=== PATIENT | female | born 1950 | race Caucasian/White ===

== ENCOUNTER 2023-02-17 03:28 | Inpatient (IN) | payer BC, OTHER ==
[2023-02-17] VITALS (8 sets, daily range): BP systolic 145–191; BP diastolic 56–86
[~2023-02-17] VITALS: Ht 198.1 cm; Wt 76.1 kg
[2023-02-17] MEDS ORDERED: methylPREDNISolone SOD SUCC 125 MG/2 ML VL IV ONE (03:45)
[2023-02-17] MEDS ORDERED: IPRATROPIUM BROM 0.5 MG/2.5ML INH SOL NEB ONE (03:45)
[2023-02-17] MEDS ORDERED: ALBUTEROL SULF 2.5 MG/0.5ML(0.5%) NEB SOLN NEB ONE (03:45)
[2023-02-17 03:55] LABS: Basophils # (auto) 0.1 10 ^3/uL (0-0.2); Eosinophils # (auto) 0.2 10 ^3/uL (0-0.8); Eosinophils % (auto) 2.8 % (0.0-7.0); Hematocrit 25.7 % (36.0-46.0); Hemoglobin 8.8 g/dL (12.2-16.2); Lymphocytes # (auto) 1.5 10 ^3/uL (0.4-5.4); Lymphocytes % (auto) 23.7 % (10.0-50.0); Mean Corpuscular Hgb Conc. 34.3 g/dL (32.0-36.0); Mean Corpuscular Volume 87.4 fL (80.0-100.0); Monocytes # (auto) 0.3 10 ^3/uL (0-1.3); Monocytes % (auto) 5.3 % (0.0-12.0); Neutrophils # (auto) 4.3 10 ^3/uL (1.6-8.6); Neutrophils % (auto) 67.2 % (37.0-80.0); Nucleated Red Blood Cells % 0.1 %; Red Blood Cells 2.94 10^6/uL (4.0-5.20); Red Cell Distribution Width 16.2 % (11.8-14.3); White Blood Cell 6.4 10^3/uL (4.4-10.8)
[2023-02-17 04:06] LABS: Albumin 3.5 g/dL (3.4-5.0); BUN/Creatinine Ratio 10.4 (10.0-20.0); Calcium 8.5 mg/dL (8.5-10.1); Potassium 4.3 mmol/L (3.5-5.1)
[2023-02-17 04:09] LABS: Bilirubin, Total 0.8 mg/dL (0.2-1.0); Phosphorus 5.7 mg/dL (2.5-4.90); Total Protein 6.6 g/dL (6.4-8.2)
[2023-02-17] MEDS: MAGNESIUM SULFATE 1GM/100ML 100 ML IV SCH ×2 (04:40→05:37)
[2023-02-17] MEDS ORDERED: ASPirin 325 MG TAB PO ONE (04:45)
[2023-02-17] MEDS ORDERED: MORPHINE SULFATE INJ 2 MG/ml SYRG IV PRN ×2 (06:45)
[2023-02-17] MEDS ORDERED: NITROGLYCERIN 0.4 MG SL TAB SL PRN (06:45)
[2023-02-17] MEDS ORDERED: ONDANSETRON HCL 4 MG/2 ML VIAL IV PRN (06:45)
[2023-02-17] MEDS ORDERED: InsuLIN REG 1unit/0.01ml Soln (100units/ml) SC ONE (07:00)
[2023-02-17] MEDS ORDERED: ACCU-CHEK COMFORT CURVE STRIP VI ONE (07:00)
[2023-02-17] MEDS ORDERED: DEXTROSE (50%) 50ML SYRG IV ONE (07:00)
[2023-02-17] MEDS ORDERED: LEVO25TA49 PO (09:23)
[2023-02-17] MEDS ORDERED: LISI40TA11 PO (09:25)
[2023-02-17] MEDS ORDERED: ALPR0.5T PO (09:26)
[2023-02-17] MEDS ORDERED: ENOXAPARIN SOD 40 MG/0.4 ML SYRINGE SC SCH (10:00)
[2023-02-17] MEDS: ENOXAPARIN SOD 80 MG/0.8ML SYRINGE SC SCH ×2 (10:24→21:56)
[2023-02-17] MEDS ORDERED: ATO40T PO (10:58)
[2023-02-17] MEDS ORDERED: AMLO-489 PO (11:00)
[2023-02-17] MEDS: ALBUTEROL SULF 2.5 MG/0.5ML(0.5%) NEB SOLN NEB SCH ×2 (11:08→18:49)
[2023-02-17] MEDS: IPRATROPIUM BROM 0.5 MG/2.5ML INH SOL NEB SCH ×2 (11:09→18:49)
[2023-02-17] MEDS: methylPREDNISolone SOD SUCC 125 MG/2 ML VL IV SCH ×2 (14:19→21:56)
[2023-02-17] MEDS: FUROSEMIDE 40 MG/4 ML VIAL IV SCH ×2 (14:19→21:56)
[2023-02-17] MEDS: ALPRAZolam 0.5 MG TAB PO PRN (21:56)
[2023-02-17] MEDS: hydrALAZINE HCL 20 MG/ML VL IV PRN (22:11)
[2023-02-18] VITALS (17 sets, daily range): BP systolic 57–177; BP diastolic 28–87
[2023-02-18] MEDS: IPRATROPIUM BROM 0.5 MG/2.5ML INH SOL NEB SCH ×5 (00:21→14:00)
[2023-02-18] MEDS: ALBUTEROL SULF 2.5 MG/0.5ML(0.5%) NEB SOLN NEB SCH ×5 (00:21→14:00)
[2023-02-18] MEDS: FUROSEMIDE 40 MG/4 ML VIAL IV SCH (06:31)
[2023-02-18] MEDS: methylPREDNISolone SOD SUCC 125 MG/2 ML VL IV SCH (06:32)
[2023-02-18] MEDS: ALPRAZolam 0.5 MG TAB PO PRN (06:43)
[2023-02-18 06:45] LABS: Basophils # (auto) 0 10 ^3/uL (0-0.2); Eosinophils # (auto) 0 10 ^3/uL (0-0.8); Lymphocytes # (auto) 0.2 10 ^3/uL (0.4-5.4); Monocytes # (auto) 0.2 10 ^3/uL (0-1.3); Monocytes % (auto) 4.4 % (0.0-12.0); Neutrophils # (auto) 4.4 10 ^3/uL (1.6-8.6); Neutrophils % (auto) 91.4 % (37.0-80.0)
[2023-02-18 06:47] LABS: Basophils % (auto) 0.1 % (0.0-2.0); Hematocrit 19.2 % (36.0-46.0); Lymphocytes % (auto) 4.1 % (10.0-50.0); Mean Corpuscular Hgb Conc. 35.3 g/dL (32.0-36.0); Mean Corpuscular Volume 85.1 fL (80.0-100.0); Potassium 4.9 mmol/L (3.5-5.1); Red Blood Cells 2.26 10^6/uL (4.0-5.20); Red Cell Distribution Width 16.8 % (11.8-14.3); White Blood Cell 4.9 10^3/uL (4.4-10.8)
[2023-02-18 06:52] LABS: Hemoglobin 6.8 g/dL (12.2-16.2)
[2023-02-18 06:59] LABS: Albumin 3.3 g/dL (3.4-5.0); BUN/Creatinine Ratio 11.9 (10.0-20.0); Bilirubin, Total 0.4 mg/dL (0.2-1.0); Calcium 8.2 mg/dL (8.5-10.1); Total Protein 5.7 g/dL (6.4-8.2)
[2023-02-18] MEDS: ENOXAPARIN SOD 80 MG/0.8ML SYRINGE SC SCH (10:00)
[2023-02-18] MEDS ORDERED: BUDESONIDE (INHALATION) 0.5 MG/2 ML NEB NEB SCH (10:00)
[2023-02-18] MEDS: hydrALAZINE HCL 20 MG/ML VL IV PRN (10:58)
[2023-02-18] MEDS ORDERED: MIDAZOLAM HCL 2MG/2ML 2ml VIAL (1mg/ml) ONE ×2 (11:25→15:38)
[2023-02-18] MEDS ORDERED: fentaNYL CITRATE 100 MCG/2 ML VL ONE ×3 (11:25→15:38)
[2023-02-18] MEDS ORDERED: LIDOCAINE 2%HCL (LOCAL ANESTH.) INJ 20ML MDV ONE ×4 (11:39→13:43)
[2023-02-18] MEDS ORDERED: IODIXANOL 320MG/ML 100ML BTL IV ONE ×2 (12:03→13:43)
[2023-02-18] MEDS ORDERED: ceFAZolin 1GM/50ML 50 ML IV ONE ×2 (12:18→12:30)
[2023-02-18] MEDS ORDERED: diphenhdrAMINE HCL 50 MG/1 ML VL IV ONE (13:00)
[2023-02-18] MEDS ORDERED: NOREPINEPHRINE 8 MG/250ML KIT 250 ML IV ONE (13:25)
[2023-02-18 14:35] LABS: Basophils # (auto) 0 10 ^3/uL (0-0.2); Eosinophils # (auto) 0 10 ^3/uL (0-0.8); Monocytes # (auto) 0.3 10 ^3/uL (0-1.3); Neutrophils # (auto) 6.6 10 ^3/uL (1.6-8.6); Red Cell Distribution Width 15.9 % (11.8-14.3); White Blood Cell 7.1 10^3/uL (4.4-10.8)
[2023-02-18 14:37] LABS: Basophils % (auto) 0.2 % (0.0-2.0); Hematocrit 18.9 % (36.0-46.0); Lymphocytes # (auto) 0.2 10 ^3/uL (0.4-5.4); Lymphocytes % (auto) 3.4 % (10.0-50.0); Mean Corpuscular Hemoglobin 30.1 pg (28.0-32.0); Mean Corpuscular Hgb Conc. 34.5 g/dL (32.0-36.0); Mean Corpuscular Volume 87.1 fL (80.0-100.0); Monocytes % (auto) 3.8 % (0.0-12.0); Neutrophils % (auto) 92.6 % (37.0-80.0); Red Blood Cells 2.17 10^6/uL (4.0-5.20)
[2023-02-18 14:42] LABS: Hemoglobin 6.5 g/dL (12.2-16.2)
[2023-02-18 14:58] LABS: Albumin 2.8 g/dL (3.4-5.0); Calcium 7.5 mg/dL (8.5-10.1)
[2023-02-18 15:03] LABS: BUN/Creatinine Ratio 12.7 (10.0-20.0); Bilirubin, Total 0.6 mg/dL (0.2-1.0); Total Protein 4.9 g/dL (6.4-8.2)
[2023-02-18] MEDS ORDERED: EPINEPHrine HCL 0 ML IV ONE (15:32)
[2023-02-18] MEDS ORDERED: PHENYLEPHRINE IV 250 ML IV ONE (15:33)
[2023-02-18 16:13] LABS: INR 1.06 (0.9-1.15); Partial Thromboplastin Time 27.1 sec (24.6-33.4)
== END 2023-02-18 15:59 ==
LOC: EDSEX 03:28 → ER 03:28 → TELE 06:45 → TELE-WESTW 23:11 → ICU WEST 02-18 15:48
PROVIDERS: ADMIT Internal Medicine; ATTEND Internal Medicine
PROC: 5A09357 Assistance with Respiratory Ventilation, Less than 24 Consecutive Hours, Continuous Positive Airway Pressure (ICD-10-PCS; 2023-02-17)
PROC: 0W9D30Z Drainage of Pericardial Cavity with Drainage Device, Percutaneous Approach (ICD-10-PCS; principal; 2023-02-18)
PROC: 30233N1 Transfusion of Nonautologous Red Blood Cells into Peripheral Vein, Percutaneous Approach (ICD-10-PCS; 2023-02-18)
DX: I21.4 Non-ST elevation (NSTEMI) myocardial infarction (principal); J96.21 Acute and chronic respiratory failure with hypoxia; I31.39 Other pericardial effusion (noninflammatory); J44.1 Chronic obstructive pulmonary disease with (acute) exacerbation; N17.9 Acute kidney failure, unspecified; I11.0 Hypertensive heart disease with heart failure; Z20.822 Contact with and (suspected) exposure to COVID-19; E11.9 Type 2 diabetes mellitus without complications; I50.9 Heart failure, unspecified; F17.210 Nicotine dependence, cigarettes, uncomplicated; Z79.84 Long term (current) use of oral hypoglycemic drugs; Z99.81 Dependence on supplemental oxygen
CPT/HCPCS: 33016; 36415; 36600; 71045; 80053; 82805; 82962; 83690; 83735; 84100; 84484; 85025; 85610; 85730; 86850; 86900; 86901; 86920; 87040; 87081; 87205; 87426; 87804; 89051; 93005; 93306; 93970; 94640; 94660; 96365; 96366; 96372; 96375; 99152; 99153; 99291; G0378; J0171; J0690; J1815; J2250; Q9967